=== PATIENT | male | born 1970 | race Native Hawaiian/Other Pacific Islander ===

== ENCOUNTER 2020-04-09 14:10 | Emergency (ER) | payer OTHER ==
[2020-04-09 14:10] VITALS: BP 133/82; TEMP 97.8
[2020-04-09 14:50] LABS: PLATELET COUNT 274 K/uL (142-355)
[2020-04-09] MEDS ORDERED: AMLODIPINE BESYLATE PO (17:17)
[2020-04-09] MEDS ORDERED: AMANTADINE100 M1 PO (17:18)
[2020-04-09] MEDS ORDERED: DOCU100C10 PO (17:19)
[2020-04-09] MEDS ORDERED: SEROQUEL100 MG PO (17:20)
[2020-04-09] MEDS ORDERED: METO50TA27 PO (17:20)
[2020-04-09] MEDS ORDERED: TRIHEXYPHEN5 MG PO (17:22)
[2020-04-09] MEDS ORDERED: VIMPAT200 M1 PO (17:23)
[2020-04-09] MEDS ORDERED: CARB25TA29 PO (17:26)
[2020-04-09] MEDS ORDERED: MAGNSUS68 PO (17:28)
[2020-04-09] MEDS ORDERED: OLAN2.5T2 PO (17:28)
[2020-04-09] MEDS ORDERED: TYLENOL325 MG PO (17:30)
[2020-04-09] MEDS ORDERED: FLUO10CA2 PO (17:31)
[2020-04-09] MEDS ORDERED: MEDR10TA4 PO (17:33)
[2020-04-16] MEDS ORDERED: OXCARBAZEPIN300 MG PO (14:10)
[2020-04-16] MEDS ORDERED: TRIHEXYPHEN5 MG PO (14:11)
[2020-04-16] MEDS ORDERED: FLUOXETINE20 MG PO (14:11)
[2020-04-16] MEDS ORDERED: METO50TA27 PO (14:12)
[2020-04-16] MEDS ORDERED: OLAN2.5T2 PO (14:12)
[2020-04-16] MEDS ORDERED: SEROQUEL100 MG PO (14:12)
[2020-04-16] MEDS ORDERED: MEDR10TA4 PO (14:12)
[2020-04-16] MEDS ORDERED: VIMPAT200 M1 PO (14:13)
[2020-04-16] MEDS ORDERED: DOCU100C10 PO (14:13)
[2020-04-16] MEDS ORDERED: MAGNSUS68 PO (14:13)
[2020-04-16] MEDS ORDERED: AMANTADINE100 M1 PO (14:14)
[2020-04-16] MEDS ORDERED: CARB25TA29 PO (14:14)
[2020-04-16] MEDS ORDERED: AMLODIPINE BESYLATE PO (14:14)
== END 2020-04-09 15:01 | disposition other institution (70) ==
LOC: ED 14:13
PROVIDERS: Emergency Medicine
DX: R46.89 Other symptoms and signs involving appearance and behavior (principal); F25.8 Other schizoaffective disorders; Z11.59 Encounter for screening for other viral diseases; Z04.6 Encounter for general psychiatric examination, requested by authority
CPT/HCPCS: 80053; 85027; 87635; 93005; 99283; U0003

== ENCOUNTER 2020-06-26 13:18 | Emergency (ER) | payer OTHER ==
[~2020-06-26] VITALS: Ht 185.4 cm; Wt 71.2 kg
[~2020-06-26 13:18] MED LIST: AMANTADINE100 M1 PO; AMLODIPINE BESYLATE PO; CARB25TA29 PO; DOCU100C10 PO; FLUO10CA2 PO; FLUOXETINE20 MG PO; MAGNSUS68 PO; MEDR10TA4 PO; METO50TA27 PO; OLAN2.5T2 PO; OXCARBAZEPIN300 MG PO; SEROQUEL100 MG PO; TRIHEXYPHEN5 MG PO; TYLENOL325 MG PO; VIMPAT200 M1 PO
[2020-06-26 13:55] LABS: PLATELET COUNT 288 K/uL (142-355)
[2020-06-26 14:02] LABS: POTASSIUM 3.9 mmol/L (3.6-5.2)
[2020-06-26 14:53] VITALS: BP 124/83; TEMP 97.9
[2020-06-26] MEDS ORDERED: HALO5INJ3 IM (15:53)
[2020-06-26] MEDS ORDERED: BISACODYL LAXAT10 MG RE (15:54)
[2020-06-26] MEDS ORDERED: ALUM-67 PO (15:55)
[2020-06-26] MEDS ORDERED: BISACODYL5 M1 PO (15:55)
[2020-06-26] MEDS ORDERED: PROM25IN5 INJ (15:56)
[2020-06-26] MEDS ORDERED: BENADRYL A12.5 MG/5 PO (15:57)
[2020-06-26] MEDS ORDERED: ROBITUSSIN PEAK COL3 PO (15:58)
[2020-06-26] MEDS ORDERED: KAOPECTATE262 MG/15 PO (15:59)
== END 2020-06-26 14:50 | disposition other institution (70) ==
LOC: ED 13:18
PROVIDERS: Emergency Medicine
DX: R46.89 Other symptoms and signs involving appearance and behavior (principal); Z11.52 Encounter for screening for COVID-19; Z04.6 Encounter for general psychiatric examination, requested by authority
CPT/HCPCS: 80053; 85027; 87635; 93005; 99283; U0003